=== PATIENT | female | born 1945 | race Caucasian/White ===

== ENCOUNTER 2022-07-26 06:48 | Observation (INO) | payer MEDICARE ==
[2022-07-20 12:47] LABS: BASOPHILS % (AUTO) 0.8 % (0.0-5.0); EOSINOPHILS % (AUTO) 5.7 % (0.0-8.0); HEMATOCRIT 42.6 % (36-48); LYMPHOCYTES % (AUTO) 31.3 % (21.0-51.0); MEAN CORPUSCULAR HEMOGLOBIN 28.8 pg (27.0-33.0); MEAN CORPUSCULAR HGB CONC 31.9 g/dL (32.0-36.0); MEAN CORPUSCULAR VOLUME 90.1 fL (79-99); MONOCYTES % (AUTO) 8.8 % (3.0-13.0); PLATELET COUNT (AUTO) 286 K/uL (130-400); RED BLOOD CELL COUNT(AUTO) 4.73 MIL/uL (4.00-5.50); RED CELL DISTRIBUTION WIDTH 13.2 % (11.0-15.5); WHITE BLOOD COUNT (AUTO) 7.5 K/uL (4.8-10.8)
[2022-07-20 12:57] LABS: CREATININE 1.2 mg/dL (0.5-1.5); POTASSIUM 4.6 mmol/L (3.5-5.1)
[2022-07-25 09:21] VITALS: BP 134/69
[~2022-07-26] VITALS: Ht 162.6 cm; Wt 92.4 kg
[2022-07-26] VITALS (21 sets, daily range): BP systolic 98–153; BP diastolic 54–79
[~2022-07-26 06:48] MED LIST: AEC81 PO; ASCO500C18 PO; CALC1TAB2 PO; CHOL500045 PO; KRIL1CAP19 PO; LISI20TA24 PO; MAGN500C4 PO; MULT-1250 PO; OMEP20CA12 PO; ROSU10TA28 PO; SEMA1PEN3 SQ; TOLT2TAB20 PO; VITA1CAP85 PO
[2022-07-26] MEDS ORDERED: LACTATED RINGERS 1000ML 1,000 ML IV ONE (07:17)
[2022-07-26] MEDS: CEFAZOLIN SODIUM 2 GM VIAL ONE ×2 (07:23→11:30)
[2022-07-26] MEDS ORDERED: BUPIVACAINE/PF 0.25% 30ML VIAL IJ ONE (09:10)
[2022-07-26] MEDS ORDERED: LIDOCAINE PF 100MG/5ML (2%) SYRINGE 5ML ONE (11:16)
[2022-07-26] MEDS ORDERED: PROPOFOL 10 MG/ML 20ML VIAL IV ONE (11:17)
[2022-07-26] MEDS ORDERED: MIDAZOLAM HCL 1 MG/ML 2ML VIAL ONE (11:17)
[2022-07-26] MEDS ORDERED: FENTANYL CITRATE PF 50 MCG/1 ML 2ML VIAL ONE (11:17)
[2022-07-26] MEDS ORDERED: ROCURONIUM 10MG/1ML SYR 10 MG/ML ML ONE (11:17)
[2022-07-26] MEDS ORDERED: ONDANSETRON 4MG INJ IVP PRN (13:30)
[2022-07-26] MEDS ORDERED: HYDROCODONE/ACETAMINOPHEN 7.5/325 MG 15 ML UDCUP PO PRN (13:30)
[2022-07-26] MEDS ORDERED: MORPHINE 4 MG SYG IVP PRN (13:30)
[2022-07-26] MEDS ORDERED: KETOROLAC 30MG VIAL (30MG/ML) IV PRN (13:30)
[2022-07-26] MEDS ORDERED: PROCHLORPERAZINE 10MG/2ML INJ IV PRN (13:30)
[2022-07-26] MEDS ORDERED: GLYCOPYRROLATE 1 MG/5 ML SYRINGE ONE (13:31)
[2022-07-26] MEDS ORDERED: MEPERIDINE-PF 25 MG/ML SYG ONE ×2 (13:36→13:59)
[2022-07-26] MEDS: 1/2NS+20MEQ KCL/1000ML 1,000 ML IV SCH ×2 (15:48→21:01)
[2022-07-26] MEDS: ENOXAPARIN SODIUM 30 MG/0.3 ML SQ SCH (15:48)
[2022-07-27] MEDS: ENOXAPARIN SODIUM 30 MG/0.3 ML SQ SCH (02:15)
[2022-07-27] MEDS: 1/2NS+20MEQ KCL/1000ML 1,000 ML IV SCH (02:50)
[2022-07-27 03:37] VITALS: BP 126/67
[2022-07-27 08:00] VITALS: BP 153/79
[2022-07-27 11:30] VITALS: BP 130/77
== END 2022-07-27 16:45 | disposition home or self-care (01) ==
LOC: DAH 06:48 → INTOOBSV 06:49 → DAHIP 06:49 → OBSVTOIN 06:49 → 4BH 15:20
PROVIDERS: ADMIT Surgery; ATTEND Surgery
DX: K44.9 Diaphragmatic hernia without obstruction or gangrene (principal); Z20.822 Contact with and (suspected) exposure to COVID-19; K21.9 Gastro-esophageal reflux disease without esophagitis; I25.10 Atherosclerotic heart disease of native coronary artery without angina pectoris; I10 Essential (primary) hypertension; E78.5 Hyperlipidemia, unspecified; Z79.899 Other long term (current) drug therapy
CPT/HCPCS: 80048; 85025; 86850 ×2; 86900 ×2; 86901 ×2; 87426; 36415 ×2; 93005; 43281; 96374; 96372 ×2; 96375; 43235; 97161; J7030 ×2; J7120 ×2; A4215 ×2; J3480 ×2; J3010; J3490 ×2; J2001; J1650 ×2; J2250; J2704; J2405; J1885; J2175 ×2; J0690; G0168; A4649 ×3; A4930; A4223; A4222; A4221; A4663; A4600; G0378 ×7

== ENCOUNTER → 2023-03-28 | Outpatient (CLI) | payer MEDICARE | END | disposition home or self-care (01) | LOC: RAH 14:11 | PROVIDERS: ATTEND Family Medicine | DX: M79.604 Pain in right leg (principal) | CPT/HCPCS: 93971 ==

== ENCOUNTER → 2025-03-05 | Outpatient (CLI) | payer MEDICARE ==
[~2025-03-05] MED LIST changes: +IOHEXOL 350 MG/ML 100ML INFUS..BTL IV ONE; -ROSU10TA28 PO; +ROSU10TA72 PO
--- NOTE | 2025-03-06 08:49 | CARDIOLOGY ---
RAD REPORT: CORNARY CT ANGIO RADIOLOGY REPORT: CORONARY CT ANGIOGRAPHY DATE: Mar 06, 2025 QUALITY: Excellent CLINICAL HISTORY AND INDICATION: [ chest pain ] TECHNIQUE: After obtaining a preliminary radiology aide image, contrast imaging performed on an [employer] [id number] scanner. A dedicated, limited window, coronary imaging protocol was used, with single breath-hold, retrospective ECG gating, and automated arrhythmia rejection. 100 cc of low osmolar contrast agent: Omnipaque 350 was delivered via a 18-gauge IV catheter in the right antecubital fossa, using a power injector and followed by 60 cc of normal saline bolus as a chaser. Collimated images were reformatted at 0.5 mm intervals, and sent to an offline independent workstation for interpretation, using 3D anatomic reconstructions: Curved multiplanar reconstructions, maximum intensity projections, and multiplanar imaging. 5 mg IV metoprolol was administered prior to scanning. 0.8 mg SL nitroglycerin was given. CORONARY ARTERY DESCRIPTIONS: The coronary arteries arise in normal position. Left main coronary artery: Normal caliber vessel that bifurcates into the LAD and LCx. No stenosis. Left anterior descending coronary artery: Normal caliber vessel and gives rise to diagonal and septal branches. There is calcified plaque in the proximal LAD with 20-30% stenosis. Left circumflex coronary artery: Normal caliber, nondominant and gives rise to a large OM branch. No stenosis. Right coronary artery: Large, dominant vessel giving rise to the PL and PDA branches. No stenosis. CAD-RADs: 2, mild non-obstructive CAD. Thoracic Aorta: Normal diameter. Karla Mccarthy MD Cardiovascular Disease [facility] KARLA MCCARTHY MD Mar 06, 2025 08:49
== END | disposition home or self-care (01) ==
LOC: RAH 09:24
PROVIDERS: ATTEND Internal Medicine Cardiovascular Disease
DX: R06.02 Shortness of breath (principal)
CPT/HCPCS: 75574; J3490; Q9967